=== PATIENT | female | born 1990 | race Caucasian/White ===

== ENCOUNTER 2023-01-27 21:05 | Emergency (ER) | payer OTHER, MEDICAID, SELFPAY ==
[2023-01-27 21:13] VITALS: BP 130/88; PULSE 80; RESP 16; TEMP 36.8; O2SAT 99; BMI 48.1
--- NOTE | 2023-01-27 22:23 | ED.ABDPAIN1 ---
HPI - Abdominal Pain General Chief Complaint: Abdominal Pain Stated Complaint: ABDOMINAL PAIN Time Seen by Provider: 01/27/23 21:57 Source: patient Mode of arrival: walk-in History of Present Illness HPI narrative: pt presents emergency department complaining of abdominal pain. Patient states she's has pain in her right flank radiating to her right lower quadrant. Pain, nausea and vomiting and diarrhea have been ongoing for the last 3 days. Patient has a history of a gastric sleeve, and a cholecystectomy. She denies any hematemesis, melena, hematochezia. She has not taking anything at home for nausea or pain. She denies any fever, chills, or cough. She denies any chest pain, shortness of breath. She denies any hematuria, dysuria. She states her urine is concentrated she has not been able to keep anything down the last 3 days. Denies any trauma. Related Data Previous Rx's Medication Instructions Recorded ondansetron HCl 4 mg tablet 4 mg PO DAILY PRN nausea and 01/28/23 vomiting 4 days #10 tabs Allergies Allergy/AdvReac Type Severity Reaction Status Date / Time aspirin Allergy Severe Verified 01/27/23 21:18 cephalexin [From Keflex] Allergy Severe Verified 01/27/23 21:18 dicyclomine [From Bentyl] Allergy Severe Verified 01/27/23 21:18 diphenhydramine Allergy Severe Verified 01/27/23 21:18 [From Benadryl] fentanyl Allergy Severe Verified 01/27/23 21:18 ketorolac [From Toradol] Allergy Severe Verified 01/27/23 21:18 Penicillins Allergy Severe Verified 01/27/23 21:18 rizatriptan [From Maxalt] Allergy Severe Verified 01/27/23 21:18 tramadol Allergy Severe Verified 01/27/23 21:18 Review of Systems ROS Status of ROS 10 or more systems reviewed and unremarkable except as noted in history and below Exam Narrative Exam Narrative: Nurses notes and vital signs reviewed and patient is not hypoxic. General: Nontoxic, Well-appearing and in no apparent distress. Skin: Warm, dry, no pallor noted. No Rash Head: Normocephalic, atraumatic. Neck: Supple, non-tender. Eye: Pupils are equal, round and EOMI. No scleral icterus. Ears, Nose, Mouth, and Throat: TM clear, no posterior oropharynx erythema or nasal mucosal hypertrophy, uvula is mid-line Oral mucosa is moist Cardiovascular: Regular Rate and Rhythm without murmur, gallop or rub. Respiratory: No accessory muscle use or respiratory distress. Lungs are clear to auscultation, no wheezing, rales or rhonchi Chest Wall: no tenderness Back: No midline thoracic or lumbar vertebral tenderness. No CVA tenderness Musculoskeletal: normal ROM, no calf or popliteal tenderness, no lower extremity edema/swelling GI: obese, Abdomen is soft, non-distended. Normal bowel sounds. No masses appreciated. mild right lower quadrant tenderness to palpation. No rebound, guarding, or rigidity noted. Neurological: A&O x4. No cranial nerve dysfunction observed. No truncal ataxia. Moves all extremities. Sensation intact. Psychiatric: Cooperative and interactive. Normal mood and affect. Constitutional Vital Signs, click to edit/add: Last Vital Signs Temp 98.2 F 01/27/23 21:13 Pulse 71 01/27/23 22:35 Resp 18 01/27/23 22:35 BP 114/78 01/27/23 22:35 Pulse Ox 98 01/27/23 22:35 O2 Del Method Room Air 01/27/23 21:13 Course Vital Signs Vital signs: Vital Signs Temperature 98.2 F 01/27/23 21:13 Pulse Rate 80 01/27/23 21:13 Respiratory Rate 16 01/27/23 21:13 Blood Pressure 130/88 H 01/27/23 21:13 Pulse Oximetry 99 01/27/23 21:13 Oxygen Delivery Method Room Air 01/27/23 21:13 Temperature 98.2 F 01/27/23 21:13 Pulse Rate 71 01/27/23 22:35 Respiratory Rate 18 01/27/23 22:35 Blood Pressure 114/78 01/27/23 22:35 Pulse Oximetry 98 01/27/23 22:35 Oxygen Delivery Method Room Air 01/27/23 21:13 MDM - Abdominal Pain MDM Narrative Medical decision making narrative: She had an IV established, given analgesics, IV fluids and antiemetics. Labs and CT scan results are pending. Urinalysis is normal. Lab results and CT scan are unremarkable. Patient is nontoxic, stable for outpatient follow-up and treatment. All results discussed with patient. Patient advised follow-up with primary care doctor and director utilization management. Given a prescription for Zofran. At this time the patient is without objective evidence of an acute process requiring hospitalization or inpatient management. The patient has remained hemodynamically stable. No additional indication for emergent studies at this time. I answered all questions. Discussed discharge instructions including standard anticipatory guidance and what should prompt a return to the emergency department, including if they get worse are not getting better or develops any new or concerning symptoms. I've given them specific time frame in which to follow-up, and who to follow-up with. The patient demonstrates understanding. Patient is nontoxic and stable for discharge with outpatient follow-up. This note was created with the assistance of a speech recognition program. Although the intention is to generate documents that actually reflects the content of the visit, no guarantees can be provided that every mistake has been identified and corrected by editing. Differential Diagnosis Differential diagnosis: Likely abdominal pain, acute appendicitis, calculus of kidney, diverticulitis, gastroenteritis and small bowel obstruction Lab Data Attestation: I reviewed the patient's lab results. Labs: Lab Results 01/27/23 01/27/23 Range/Units 22:36 22:40 WBC 8.2 (4.0-11.0) 10^3/uL RBC 4.50 (4.20-5.40) 10^6/uL Hgb 13.3 (12.0-16.0) g/dL Hct 39.9 (36.0-48.0) % MCV 88.7 (81.0-99.0) fL MCH 29.6 (26.7-34.0) pg MCHC 33.3 (29.9-35.2) g/dL RDW 13.7 (11.0-15.0) % Plt Count 313 (150-450) 10^3/uL MPV 10.2 (9.5-13.5) fL Neut % (Auto) 64.1 (43.0-75.0) % Lymph % (Auto) 26.7 (20.5-60.0) % [place] % (Auto) 6.1 (1.7-12.0) % Eos % (Auto) 2.4 (0.9-7.0) % Baso % (Auto) 0.5 (0.2-2.0) % Neut # (Auto) 5.3 (1.4-6.5) 10^3/uL Lymph # (Auto) 2.2 (1.2-3.8) 10^3/uL [place] # (Auto) 0.5 (0.3-0.8) 10^3/uL Eos # (Auto) 0.2 (0.0-0.7) 10^3/uL Baso # (Auto) 0.0 (0.0-0.1) 10^3/uL Abs Immat Gran (auto) 0.02 (0.00-0.03) 10^3/uL Imm/Tot Granulo (auto) 0.2 (0.0-0.5) % Sodium 140 (136-145) mmol/L Potassium 3.6 (3.5-5.1) mmol/L Chloride 104 (98-107) mmol/L Carbon Dioxide 28.1 (21.0-32.0) mmol/L Anion Gap 11.5 BUN 8.0 (7.0-18.0) mg/dL Creatinine 0.99 (0.55-1.02) mg/dL Est GFR ( Amer) >60 (>=60) Est GFR (Non-Af Amer) >60 (>=60) BUN/Creatinine Ratio 8.1 Glucose 86 (74-106) mg/dL Lactate 0.9 (0.4-2.0) mmol/L Calcium 9.1 (8.5-10.1) mg/dL Total Bilirubin 0.2 (0.2-1.0) mg/dL AST 25 (15-37) U/L ALT 45 (14-59) U/L Alkaline Phosphatase 97 (46-116) U/L Total Protein 8.1 (6.4-8.2) g/dL Albumin 3.9 (3.4-5.0) g/dL Globulin 4.2 g/dL Albumin/Globulin Ratio 0.9 Lipase 74.0 (73.0-393.0) U/L Urine Color Lt. yellow (YELLOW) Urine Clarity Clear (CLEAR) Urine pH 6.0 (5.0-9.0) Ur Specific [place] 1.025 (1.005-1.025) Urine Protein Negative (NEG/TRACE) mg/dL Urine Glucose (UA) Negative (NEGATIVE) mg/dL Urine Ketones Negative (NEGATIVE) mg/dL Urine Occult Blood Negative (NEGATIVE) Urine Nitrite Negative (NEGATIVE) Urine Bilirubin Negative (NEGATIVE) Urine Urobilinogen 0.2 (0.2-1.0) EU/dL Ur Leukocyte Esterase Negative (NEGATIVE) Discharge Plan Discharge Chief Complaint: Abdominal Pain Clinical Impression: Abdominal pain Patient Disposition: Home, Self-Care Time of Disposition Decision: 00:52 Condition: Good Mode of Transportation: Private Vehicle Prescriptions / Home Meds: New ondansetron HCl 4 mg tablet 4 mg PO DAILY PRN (Reason: nausea and vomiting) 4 Days Qty: 10 0RF Instructions: Abdominal Pain (ED) Stand Alone Forms: Portal Instructions Referrals: BUCKY ARNOLD APRN [Physician] - 1 week Physician,Non-Staff, MD [Primary Care Provider] - 1 week
--- NOTE | 2023-01-27 22:28 | CT_ITS ---
The [address] [address] Patient Name: LONDON BLANKENSHIP MRN: [id number] date: 1990 Sex: F Assigned Patient Location: ER Current Patient Location: Accession/Order Number: [id number] Exam Date: 01/27/2023 23:50 Report Date: 01/28/2023 01:45 At the request of: ANDRAE RODRIGUEZ Procedure: CT abdomen pelvis w con EXAM: CT abdomen pelvis w con HISTORY: Abd pain. COMPARISON: The patient has undergone abdominal CTs most recently 06/20/2022, 10/31/2022, 11/30/2022, 12/02/2022. Most recent exams performed at [facility]. TECHNIQUE: Images of abdomen and pelvis with IV contrast. FINDINGS: Lung bases are clear. No adrenal mass or adenopathy. No obstructive uropathy. Gallbladder is absent. Prior sleeve gastrectomy. No bowel obstruction or inflammation. No pneumatosis or pneumoperitoneum. Normal appendix. 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 No pelvic adenopathy or ascites. Uterus is absent. Bladder is decompressed. No acute bony abnormality. CT/CT abdomen pelvis w con IMPRESSION: 1. No acute findings or significant change from multiple prior exams. 2. Previous cholecystectomy, hysterectomy, sleeve gastrectomy. Electronically authenticated by: REINA MOTT Date: 01/28/2023 01:45
[2023-01-27 22:35] VITALS: BP 114/78; PULSE 71; RESP 18; O2SAT 98
[2023-01-27 22:50] LABS: Bilirubin Urine NEGATIVE (NEGATIVE); Blood Urine NEGATIVE (NEGATIVE); Clarity Urine CLEAR (CLEAR); Color Urine LT. YELLOW (YELLOW); Glucose Urine UA NEGATIVE (NEGATIVE); Ketones Urine NEGATIVE (NEGATIVE); Leukocyte Esterase Urine NEGATIVE (NEGATIVE); Nitrite Urine NEGATIVE (NEGATIVE); Protein Urine NEGATIVE (NEG/TRACE); Specific Gravity Urine 1.025 (1.005-1.025); Urobilinogen Urine 0.2 EU/dL (0.2-1.0)
[2023-01-27 22:52] LABS: Urine Microscopic Indicated NO
[2023-01-27] MEDS: 0.9 % SODIUM CHLORIDE 1,000 ML 999 ML IV (22:52)
[2023-01-27] MEDS: MORPHINE SULFATE 2 MG/ML SYRINGE 4 MG IV (23:05)
[2023-01-27] MEDS: ONDANSETRON PF 4 MG/2 ML VIAL IV (23:05)
[2023-01-27 23:29] LABS: Basophils Percent Auto 0.5 % (0.2-2.0); Eosinophils Absolute Auto 0.2 10^3/uL (0.0-0.7); Eosinophils Percent Auto 2.4 % (0.9-7.0); Hematocrit 39.9 % (36.0-48.0); Hemoglobin 13.3 g/dL (12.0-16.0); Immature Granulocytes Abs Auto 0.02 10^3/uL (0.00-0.03); Immature Granulocytes Pct Auto 0.2 % (0.0-0.5); Lymphocytes Absolute Auto 2.2 10^3/uL (1.2-3.8); Lymphocytes Percent Auto 26.7 % (20.5-60.0); Mean Corpuscular HGB Conc 33.3 g/dL (29.9-35.2); Mean Corpuscular Hemoglobin 29.6 pg (26.7-34.0); Mean Corpuscular Volume 88.7 fL (81.0-99.0); Mean Platelet Volume 10.2 fL (9.5-13.5); Monocytes Absolute Auto 0.5 10^3/uL (0.3-0.8); Monocytes Percent Auto 6.1 % (1.7-12.0); Neutrophils Absolute Auto 5.3 10^3/uL (1.4-6.5); Neutrophils Percent Auto 64.1 % (43.0-75.0); Platelet Count 313 10^3/uL (150-450); Red Cell Distribution Width 13.7 % (11.0-15.0); White Blood Count 8.2 10^3/uL (4.0-11.0)
[2023-01-27 23:40] LABS: Lactate/Lactic Acid 0.9 mmol/L (0.4-2.0)
[2023-01-27 23:47] LABS: Alanine Aminotransferase 45 U/L (14-59); Albumin Globulin Ratio 0.9; Albumin Level 3.9 g/dL (3.4-5.0); Alkaline Phosphatase 97 U/L (46-116); Anion Gap 11.5; Aspartate Amino Transferase 25 U/L (15-37); BUN Creatinine Ratio 8.1; Bilirubin Total 0.2 mg/dL (0.2-1.0); Calcium 9.1 mg/dL (8.5-10.1); Carbon Dioxide 28.1 mmol/L (21.0-32.0); Chloride 104 mmol/L (98-107); Estimated GFR (African America >60 (>=60); Estimated GFR (Non-African Ame >60 (>=60); Globulin 4.2 g/dL; Glucose 86 mg/dL (74-106); Potassium 3.6 mmol/L (3.5-5.1); Sodium 140 mmol/L (136-145); Total Protein 8.1 g/dL (6.4-8.2)
[2023-01-28 01:27] VITALS: BP 100/80; PULSE 79; RESP 18; O2SAT 99
== END 2023-01-28 01:31 | disposition home or self-care (01) ==
PROVIDERS: Emergency Provider Emergency Medicine
DX: R10.9 Unspecified abdominal pain (principal); Z90.710 Acquired absence of both cervix and uterus; Z90.49 Acquired absence of other specified parts of digestive tract; Z98.84 Bariatric surgery status; R11.2 Nausea with vomiting, unspecified; R19.7 Diarrhea, unspecified
CPT/HCPCS: 36415; 74177; 80053; 81003; 83605; 83690; 85025; 96361; 96374; 96375; 99285; Q9967